=== PATIENT | female | born 1965 | race Caucasian/White ===

== ENCOUNTER 2018-08-14 16:40 | Inpatient (IN) | payer OTHER ==
[2018-08-14] MEDS ORDERED: ONDANSETRON 4 MG/2 ML VIAL ONE (17:10)
[2018-08-14] MEDS ORDERED: HYDROmorphONE/DILAUDID 1 MG/ML INJ ONE ×2 (17:10→19:31)
[2018-08-14] MEDS ORDERED: HYDROmorphONE/DILAUDID 2 MG/ML INJ IVP ONE ×2 (17:11→18:29)
[2018-08-14] MEDS ORDERED: ONDANSETRON 4 MG/2 ML VIAL IVP PRN (17:11)
--- NOTE | 2018-08-14 17:13 | EDPHY ---
HPI/HX/ROS/PE/MDM Narrative: CLINICAL IMPRESSION: T10 spinous process fracture, nondisplaced T11 fracture, unstable anterior, posterior T12 fracture ASSESSMENT/PLAN: Patient is a 53-year-old female with no significant medical history who presents with a complaint of low back pain after falling 4 ft off a scaffolding. Patient is afebrile and not toxic appearing, she is in moderate distress on arrival. HSNE intact with no significant red flags. Thoracic and Lumbar spine CT revealed acute T10 spinous process fracture, acute nondisplaced T11 fracture as well as unstable anterior, posterior fracture of T12. Dr. Toussaint with Neurosurgery was consulted, recommended MRI for further evaluation. MRI revealed fractures as mentioned in CT, no findings to suggest epidural compression syndrome, epidural hematoma, spinal cord injury or cauda equina. The patient was given multiple doses of Dilaudid with mild improvement of her pain. Dr. Toussaint evaluated this patient in the emergency department, she will be admitted to his service for further evaluation and surgical management. On repeat exam in prior to transfer to the floor her pain was improved, she remained neurovascularly intact while in the emergency department. Case discussed with and patient seen by Dr. Shah DIFFERENTIAL DX: Epidural compression syndrome, epidural hematoma, fracture, subluxation, cauda equina ED COURSE: 5:10 p.m.: Discussed with Dr. Shah 6:10 p.m.: Discussed case with Dr. Moreno time, multiple fractures of her T and L-spine including unstable T12 fracture. Will proceed with thoracic CT. Discussed with Dr. Shah. 7:30 p.m.: Discussed case with Dr. Toussaint, recommends further imaging to include MRI without contrast. Patient with findings suggestive of DISH. CHIEF COMPLAINT: Lumbar back pain, fall HPI: Patient is a 53-year-old female with no significant medical history who presents to the emergency department after sustaining a 4 ft fall onto her back. 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 On the way down she believes she hit some concrete and ultimately landed on her back. She immediately experienced sharp pain in her mid lumbar spine. She did not hit her head, there is no loss of consciousness. She is not on aspirin or any anticoagulation. No history of chronic back pain or surgeries. Patient denies saddle paresthesias, lower extremity numbness, tingling, major motor weakness, urinary retention or bowel/bladder incontinence. She denies any headache, neck pain, back pain, chest pain, shortness of breath or abdominal pain. Patient denies any other injury. PMH: Denies Pertinent Past Surgical History: Denies Family History: Noncontributory Social History: Denies alcohol, denies illicit drug use and denies cigarette smoking REVIEW OF SYSTEMS: All other systems negative Constitutional: No fever, no chills, appetite change. Eyes: No discharge, vision change ENT: No sore throat, congestion, ear pain. Cardiovascular: No chest pain, no palpitations. Respiratory: No cough, no shortness of breath. Gastrointestinal: No abdominal pain, no vomiting, diarrhea. Genitourinary: No hematuria, dysuria, flank pain, pelvic pain Musculoskeletal: Back pain; denies joint swelling, joint pain, myalgias. Skin: No rashes, color change. Neurological: No headache, dizziness, weakness. PHYSICAL EXAM: General Appearance: Alert, oriented, appropriate, cooperative, moderate distress , well hydrated, non-toxic appearing, VSS, no hypoxia. HEENT: TMs are clear bilaterally no perforation or FB, no injection, no evidence of serous or mucopurulent otitis. Oropharynx clear is no erythema or exudates, no tonsillar hypertrophy or asymmetry. Dentition without abnormality. Eyes: PERRLA, no acute vision change, nystagmus, swelling, discharge, pain or photosensitivity. Conjunctiva pink, no pallor or injection Neck: Supple, nontender, no lymphadenopathy, no midline pain, no step-off or deformity, FROM, no meningismus. Respiratory: There are no retractions, lungs are clear to auscultation. Cardiac: Regular rate and rhythm, no murmurs or gallops. Gastrointestinal: Abdomen is soft, nontender, bowel sounds normal, no masses/ hernia, no rigidity, guarding or focal peritoneal findings. No step-off, palpable bony abnormality, edema, erythema or ecchymosis of thoracic or lumbar spines. TTP: Midline low thoracic and upper lumbar spine. No obvious bony deformity. Limited ROM of lumbar spine due to pain. 5/5 and equal strength of the UEs and LEs bilaterally including shoulder shrug. Pulses: 2+ and equal radial, DP and PT pulses bilaterally. Sensation intact and symmetric to light touch from face, UEs and LEs bilaterally. Back Pain Pathway Low/medium concern for Acute Spinal Emergency (ASE) High Sensitivity Neuro Exam (HSNE) Lumbar pain L1: inner thigh sensation-no deficit L2: ADduct thigh (cross legs)- no deficit L3: Extend knee- no deficit L4: Ankle dorsiflexion- no deficit L5: Great toe extension- no deficit S1: Flex knee- no deficit S3-4: bladder/bowel function- no dysfunction Neurological: Alert and oriented x 3, CN 2-12 grossly intact, normal gait no ataxia, DTR's intact, normal sensation and strength Skin: Warm, dry, no rashes, no nodules on palpation. Musculoskeletal: Extremities are symmetrical, full range of motion, no tenderness, deformity, swelling, or erythema. Psychiatric: Patient is oriented X 3, there is no agitation. MEDICAL DECISION MAKING: Patient was seen with Dr. Shah. Diagnosis: Acute thoracic spine fractures including T10 spinous process, nondisplaced T11 and unstable anterior posterior T12. New, requires workup Summary: See Assessment and Plan for summary of ED visit Clinical lab tests: ordered / reviewed. Independent visualization of images, tracing, or specimens: Yes. Decision to obtain medical records or history from someone other than the patient: No Review / Summarize previous medical records: No Discussed patient with another provider: Yes, Dr. Shah and Dr. Toussaint Patient Progress: Stable, admit. (Jessica Abad) ED Course: Independent physician evaluation: I evaluated and participated in the management of the patient. I also evaluated the patient independently. My co-signature indicates that I have reviewed this chart and I agree with the findings and plan of care as documented. My personal H&P findings include: Patient presented to the ED after a 4-5 foot fall while working today. She presents the emergency department with complaints of acute pain in her thoracolumbar region. She denies any acute numbness or weakness. She denies any chest pain, abdominal pain, difficulty breathing or additional traumatic complaints. Physical exam: General Appearance: Alert, no distress Head: Atraumatic Eyes: Pupils equal, round, reactive ENT, Mouth: No hemotympanum, no oral trauma Neck: Nontender, trachea midline Respiratory: No chest wall tender, no subcutaneous air, lungs clear bilaterally Cardiovascular: Regular rate and rhythm Abdomen: Abdomen is soft and nontender, pelvis stable Skin: No lacerations, No abrasion Back: Tenderness to palpation noted throughout the lower thoracolumbar spine Extremities: Nontender, full range of motion Neurological: A&Ox3, normal motor function, normal sensory exam ED course: Patient arrives neurologically intact. She was taken for CT scan of the T and L -spine which demonstrate fractures involving T10 and 11 which are unstable. Consultation was made with Neurosurgery at 7:20 p.m.. The case was discussed with Dr. Toussaint. Patient will be admitted to the neuro surgical service. MRI demonstrates no evidence of a significant epidural hematoma. (Ellis Shah) - Data Points Imaging Results: Imaging Impressions Lumbar Spine CT 08/14/18 17:11 Impression: 1. Acute minimal compression fracture of the superior endplate of T12 with a nondisplaced fracture of the left superior articular facet of T12, likely an unstable fracture. 2. Nondisplaced fracture through anterior-inferior aspect of the T11 vertebral body and the inferior articular facets of T11 and base of the T11 spinous process, likely unstable. 3. Incomplete visualization of what appears to be an acute fracture through the T10 spinous process and partially fused interspinous ligaments of T11 and T10. 4. The anterior elements superior to the midportion of T11 are superior to the imaged lumbar spine. CT thoracic spine is recommended. 5. Spinal canal narrowing secondary to calcification in the posterior longitudinal ligament at T11-T12 and T12-L1. 6. Additional findings as above. Findings discussed with Jessica Abad PA-C on 08/14/2018 at 18:06. Thoracic Spine CT 08/14/18 18:09 Impression: 1. Partial ankylosis of the thoracolumbar spine, with fractures of the anterior and posterior elements of T11 and T12, that are likely unstable. MRI would be useful to assess for epidural hematoma, with no definite hematoma visible on this unenhanced CT. 2. Nondisplaced fracture through the inferior T10 spinous process. 3. Additional findings, as above. Findings discussed with PRIETO Cruz, on August 14, 2018 at 1844. Thoracic Spine MRI 08/14/18 19:18 Impression: 1. Acute mild compression fracture of the superior plate of T12, with nonvisualization of an anteroinferior T11 vertebral body fracture and posterior element fractures from T10 through T12 visible on CT. 2. Severe spinal canal narrowing at T11-T12 that appears to be secondary to bulky calcification of the posterior longitudinal ligament, effacing CSF adjacent to the spinal cord, with equivocal cord compression. Findings discussed with PRIETO Cruz, on August 14, 2018 at 2051. Laboratory Results: Laboratory Results 08/14/18 17:20 08/14/18 17:20 08/14/18 08/14/18 17:20 17:20 WBC 13.39 10^3/uL H 10^3/uL (3.80-9.50) RBC 5.43 10^6/uL H 10^6/uL (4.18-5.33) Hgb 15.7 g/dL g/dL (12.6-16.3) Hct 47.7 % H % (38.0-47.0) MCV 87.8 fL fL (81.5-99.8) MCH 28.9 pg pg (27.9-34.1) MCHC 32.9 g/dL g/dL (32.4-36.7) RDW 13.4 % % (11.5-15.2) Plt Count 341 10^3/uL 10^3/uL (150-400) MPV 9.5 fL fL (8.7-11.7) Neut % (Auto) 61.7 % % (39.3-74.2) Lymph % (Auto) 30.0 % % (15.0-45.0) [place] % (Auto) 5.2 % % (4.5-13.0) Eos % (Auto) 1.1 % % (0.6-7.6) Baso % (Auto) 0.5 % % (0.3-1.7) Nucleat RBC Rel Count 0.0 % % (0.0-0.2) Absolute Neuts (auto) 8.25 10^3/uL H 10^3/uL (1.70-6.50) Absolute Lymphs (auto) 4.02 10^3/uL H 10^3/uL (1.00-3.00) Absolute Monos (auto) 0.70 10^3/uL 10^3/uL (0.30-0.80) Absolute Eos (auto) 0.15 10^3/uL 10^3/uL (0.03-0.40) Absolute Basos (auto) 0.07 10^3/uL 10^3/uL (0.02-0.10) Absolute Nucleated RBC 0.00 10^3/uL 10^3/uL (0-0.01) Immature Gran % 1.5 % H % (0.0-1.1) Immature Gran # 0.20 10^3/uL H 10^3/uL (0.00-0.10) Sodium 138 mEq/L mEq/L (135-145) Potassium 4.2 mEq/L mEq/L (3.5-5.2) Chloride 105 mEq/L mEq/L (97-110) Carbon Dioxide 23 mEq/l mEq/l (22-31) Anion Gap 10 mEq/L mEq/L (6-14) BUN 12 mg/dL mg/dL (7-23) Creatinine 0.7 mg/dL mg/dL (0.6-1.0) Estimated GFR > 60 Glucose 106 mg/dL H mg/dL (70-100) Calcium 9.6 mg/dL mg/dL (8.5-10.4) Total Bilirubin 0.7 mg/dL mg/dL (0.1-1.4) AST 43 IU/L IU/L (14-46) ALT 49 IU/L IU/L (9-52) Alkaline Phosphatase 92 IU/L IU/L (38-126) Total Protein 7.9 g/dL g/dL (6.3-8.2) Albumin 4.6 g/dL g/dL (3.5-5.0) Medications Given: Discontinued Medications Hydromorphone HCl (Dilaudid) 0.5 mg IVP EDNOW ONE Stop: 08/14/18 17:12 Last Admin: 08/14/18 17:18 Dose: 0.5 mg Hydromorphone HCl (Dilaudid) 0.5 mg IVP EDNOW ONE Stop: 08/14/18 18:30 Last Admin: 08/14/18 19:33 Dose: 0.5 mg Ondansetron HCl (Zofran) 4 mg IVP Q4 PRN PRN Reason: Nausea/Vomiting, Can't Take PO Stop: 02/10/19 17:10 Last Admin: 08/14/18 17:18 Dose: 4 mg Ondansetron HCl (Zofran) 4 mg IVP EDNOW ONE Stop: 08/14/18 19:36 Last Admin: 08/14/18 19:37 Dose: 4 mg General Initial Vital Signs: Initial Vital Signs Temperature (C) 36.5 C 08/14/18 16:50 Heart Rate 89 08/14/18 16:50 Respiratory Rate 18 08/14/18 16:50 Blood Pressure 158/90 H 08/14/18 16:50 O2 Sat (%) 94 08/14/18 16:50 O2 Delivery Mode Room Air O2 (L/minute) 96 Allergies/Adverse Reactions: No Known Allergies Allergy (Unverified 08/14/18 16:50) Home Medications: Medication Instructions Recorded Multivitamins [Multivitamin (*)] 1 each PO DAILY 08/14/18 Departure - Departure Condition: Fair
[2018-08-14 19:18] LABS: PLATELET COUNT 341 10^3/uL (150-400)
[2018-08-14] MEDS ORDERED: ONDANSETRON 4 MG/2 ML VIAL IVP ONE (19:35)
--- NOTE | 2018-08-14 22:25 | GHP ---
DATE OF ADMISSION: 08/14/2018 REASON FOR ADMISSION: Three column thoracolumbar fracture status post fall. 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 She was working at the [employer] department when she states she fell approximately 4 feet and hit her back on a table being used by the [employer] workers. At that point, she developed acute onset of back pain with no radiculopathy or extremity symptoms. She was in so much pain that she requested her coworkers bring her to [facility] for further evaluation and management. She was brought by private car and ambulated on her own to [facility] with severe thoracolumbar pain. No numbness, tingling, pain or weakness of the lower extremities and no loss of bowel or bladder function. No loss of consciousness. The patient underwent imaging studies which demonstrate a diffuse ankylosing process of the thoracolumbar system, likely suggestive of DISH with an acute T10 spinous process fracture, acute nondisplaced T11 fracture , and unstable anterior posterior fracture of T12. Neurosurgery was consulted. An MRI completed. In my discussion with the patient, she currently has focal back pain. Continues to deny any neurological deficits. No previous history of spinal fractures. She is adopted and her adoptive parents are here but there is no history of any spinal genetic disorders. FAMILY HISTORY: Negative and noncontributory as the patient is adopted. 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 Denies any alcohol or other illicit drug use. No tobacco use. She does have a significant other who is with her in the emergency department. PAST MEDICAL HISTORY: None. MEDICATIONS: None. ALLERGIES: No known drug allergies. REVIEW OF SYSTEMS: A complete 10-point review of systems from the patient's intake form reviewed by myself, significant only for those noted above in the HPI. PHYSICAL EXAMINATION: VITALS: Blood pressure 125/75, heart rate 102, respiratory rate 18, saturating at 96% on room air. Temperature is 37.1. GENERAL: The patient is lying in the bed. No acute distress. She is quite pleasant and cooperative with examination. Both of her parents and her significant other are at the bedside. HEENT: Head is atraumatic, normocephalic. Pupils are equal, round, and reactive to light bilaterally. Extraocular movements are intact. Oropharynx is moist. NEUROLOGIC: Cranial nerves 2-12 are intact. Tongue protrudes in the midline. Uvula and palate elevate symmetrically. She has intact sensation to light touch on her face bilaterally. She has intact sensation to her face bilaterally and hearing is intact to light finger scratch. Shoulder shrug is symmetric. MOTOR EXAM: She has 5/5 strength with bilateral financial retirement plan specialist strength, biceps, triceps, deltoids, bilateral hip flexion, knee flexion and extension, plantar and dorsiflexion, and extensor hallucis longus. SENSORY EXAM: She has intact sensation to light touch throughout all major dermatomes of the bilateral upper and lower extremities throughout. REFLEXES: 2+ reflexes in bilateral brachioradialis and patella. No Rosy's. No Babinski. SPINE: She has no edema, erythema or ecchymosis of the thoracolumbar spine. No palpable step-offs. She does have pain in the thoracolumbar junction. MEDICAL DECISION MAKING: Patient underwent a CT of the thoracic and lumbar spine as well as an MRI scan of the thoracic spine. There is evidence of a partially ankylosis of the thoracolumbar spine with fracture of the anterior and posterior elements of T11 and T12. There is a T10 spinous process fracture. Flowing osteophytes extending from T4 through T11 anteriorly and moderate spinal canal stenosis of T11 and T12 and T12-L1 secondary to calcified posterior longitudinal ligament. Compression deformity of the superior endplate of T12 without significant vertebral height loss. MRI of the thoracic spine demonstrates acute mild compression fracture of the superior endplate of T12 with none visualized of the interior or inferior T11 vertebral body fracture , posterior element fracture T10 through T12. Severe spinal canal narrowing at T11 and T12. LABS: White count is 13.39, hematocrit 47.7, sodium 138, potassium 4.2, BUN of 12, creatinine of 0.7. ASSESSMENT/PLAN: The patient is a 53-year-old otherwise very healthy woman with evidence of DISH versus ankylosing spondylitis who presents with acute onset of back pain status post a 4-5 foot level fall. She has evidence of a stable unstable thoracolumbar fracture with spinal stenosis but no neurological deficits. I reviewed with the patient and her family the treatment options including bracing versus surgical stabilization with internal bracing. At this point, she agrees with the treatment plan and we will admit her to the med surg floor under my care. We will plan to take her for surgery tomorrow for posterior stabilization T9 through L2. Risks and complications of surgery were discussed with the patient and her family. They understand. We will consent her in the morning. We will make her n.p.o. this evening. Put her on q.4 hour neuro checks for this evening. All of their questions were answered in the emergency department and she was seen by myself at 9:10 p.m. /[id number]/MODL MTDD
[2018-08-14] MEDS: HYDROCODONE/APAP 5/325 TAB PO PRN (22:58)
[2018-08-14] MEDS: NS 1,000 ML IV SCH (23:00)
[2018-08-15] MEDS: HYDROCODONE/APAP 5/325 TAB PO PRN ×3 (02:19→20:19)
[2018-08-15] MEDS: ONDANSETRON 4 MG/2 ML VIAL IVP PRN ×2 (07:44→13:49)
[2018-08-15] MEDS: METHOCARBAMOL 750 MG TAB PO PRN ×3 (07:48→20:18)
[2018-08-15] MEDS: NS 1,000 ML IV SCH ×2 (08:04→20:24)
[2018-08-15] MEDS ORDERED: ceFAZolin 2 GM/DEXTROSE 100 ML IV ONE (08:20)
--- NOTE | 2018-08-15 08:27 | PDHPUP ---
History & Physical Update H&P update statement: This history and physical update is based on an assessment of the patient which was completed after admission or registration (within 24 hours), but prior to the surgery/procedure. H&P update: H&P reviewed & patient examined, changes noted (Risks benefits and alternatives to T9-L2 PSF for fracture stabilization discussed. Questions answered. Patient marked and consents on the chart. )
--- NOTE | 2018-08-15 11:57 | ASMTCMCOM ---
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 Pt to OR today. PT to eval when appropriate. Destiney with [employer] is present for initial information, she is not necessarily the assigned RN CM and she reports it is unknown now if pt will have WC RN CM assigned. For now Carie can be reached at [phone] F:[phone]. Face sheet and H&P faxed to Carie, also provided the contact number. CM to follow for d/c planning. Date Signed: 08/15/2018 11:57 AM Electronically Signed By:WILLIAN Duckworth
[2018-08-15] MEDS: oxyCODONE IR 5 MG TAB PO PRN ×2 (12:26→13:52)
[2018-08-15] MEDS ORDERED: morphINE SR 15 MG TAB PO ONE (13:00)
[2018-08-15] MEDS ORDERED: ACETAMINOPHEN 500 MG TAB PO ONE (14:00)
[2018-08-15] MEDS ORDERED: GABAPENTIN 300 MG CAP PO ONE (14:00)
[2018-08-15] MEDS ORDERED: BUPIVACAINE/EPI 0.25% 30 ML SDV ONE (14:28)
[2018-08-15] MEDS ORDERED: THROMBIN (BOVINE) 20,000 UNIT VIAL TP ONE (14:29)
[2018-08-15] MEDS ORDERED: SURGIFLO MATRIX KIT WITH THROMBIN 8 ML TP ONE (14:29)
[2018-08-15] MEDS ORDERED: CHLORHEXIDINE GLUC HIBICLENS 118 ML BTL TP ONE (14:29)
[2018-08-15] MEDS ORDERED: BACITRACIN 50,000 UNITS/10 ML SYR IRR ONE (14:30)
[2018-08-15] MEDS ORDERED: LR 1,000 ML IV ONE (14:46)
[2018-08-15] MEDS ORDERED: MIDAZOLAM 2 MG/2 ML VIAL IVP ONE (15:04)
--- NOTE | 2018-08-15 15:04 | PDANEPAE ---
ANE History of Present Illness traumatic spinal injury here for T9 to L2 fusion ANE Past Medical History - Cardiovascular History Hx Hypertension: No Hx Arrhythmias: No Hx Chest Pain: No Hx Coronary Artery / Peripheral Vascular Disease: No - Pulmonary History Hx Oxygen in Use at Home: No Hx Sleep Apnea: No Sleep Apnea Screening Result - Last Documented: Negative - Endocrine History Hx Diabetes: No - Chronic Pain History Chronic Pain: No ANE Review of Systems Review of Systems: - Exercise capacity Exercise capacity: >=4 METS ANE Patient History - Allergies Allergies/Adverse Reactions: No Known Allergies Allergy (Unverified 08/14/18 16:50) - Home Medications Home Medications: Multivitamins [Multivitamin (*)] 1 each PO DAILY 08/14/18 [Last Taken 08/13/18] - NPO status NPO Status: no food or drink >8 hours NPO Since - Liquids (Date): 08/15/18 NPO Since - Liquids (Time): 00:00 NPO Since - Solids (Date): 08/15/18 NPO Since - Solids (Time): 00:00 - Anes Hx Anes Hx: no prior problems - Smoking Hx Smoking Status: Never smoked - Alcohol Use Alcohol Use: Occasionally - Family Anes Hx Family Anes Hx: none ANE Labs/Vital Signs - Labs Result Diagrams: 08/14/18 17:20 08/14/18 17:20 - Vital Signs Blood Pressure: 135/68 Heart Rate: 69 Respiratory Rate: 12 O2 Sat (%): 95 Height: 160.02 cm Weight: 84.878 kg ANE Physical Exam - Airway Neck exam: FROM Mallampati Score: Class 2 Mouth exam: normal dental/mouth exam Mouth image: 1 - missing - Pulmonary Pulmonary: no respiratory distress, clear to auscultation - Cardiovascular Cardiovascular: regular rate and rhythym, no murmur, rub, or gallop - ASA Status ASA Status: I ANE Anesthesia Plan Anesthesia Plan: general endotracheal anesthesia Lines/Monitors: arterial line Total IV Anesthesia: Yes
[2018-08-15] MEDS ORDERED: CEFAZOLIN 2 GM/DEXTROSE/100 ML BAG IV ONE (15:11)
[2018-08-15] MEDS ORDERED: fentaNYL 100 MCG/2 ML INJ ONE ×3 (15:18→17:58)
[2018-08-15] MEDS ORDERED: REMIFENTANIL HCL 1 MG VIAL ONE (15:18)
[2018-08-15] MEDS ORDERED: PROPOFOL/EMULSION 500 MG/50 ML BOTTLE IV ONE (15:18)
[2018-08-15] MEDS ORDERED: PROPOFOL 200 MG/20 ML VIAL ONE (15:18)
[2018-08-15] MEDS ORDERED: MAGNESIUM HYDROXIDE 30 ML UDCUP PO PRN (15:38)
[2018-08-15] MEDS ORDERED: BISACODYL 10 MG SUPP PR PRN (15:38)
[2018-08-15] MEDS ORDERED: diphenhydrAMINE 25 MG CAP PO PRN (15:38)
[2018-08-15] MEDS ORDERED: LACTULOSE 20 GM/30 ML UDCUP PO PRN (15:38)
--- NOTE | 2018-08-15 17:06 | PDMN ---
Medical Necessity Medical necessity: Pt meets inpt criteria per MD order and [facility] [id number], Spine, Scoliosis, Posterior Instrumentation, 4 days. 53 y/o s/p 4-5 ft fall w/acute onset of severe back pain, admitted w/evidence of DISH w/acute T10 spinous process fx , acute nondisplaced T11 fx, and unstable ant post fx of T12 requiring inpt surg: T9-L2 posterior thoracic fusion. Anticipate>2MN for above for ongoing eval/treatment of above.
[2018-08-15] MEDS ORDERED: HYDROCODONE/APAP 5/325 TAB PO PRN (17:11)
[2018-08-15] MEDS ORDERED: DIAZEPAM 5 MG/ML 1 ML SYR IVP PRN (17:11)
[2018-08-15] MEDS ORDERED: NALOXONE HCL 0.4 MG/ML INJ IVP PRN (17:11)
[2018-08-15] MEDS ORDERED: fentaNYL 100 MCG/2 ML INJ IVP PRN (17:11)
[2018-08-15] MEDS ORDERED: PROMETHAZINE HCL 25 MG/ML INJ IVP PRN (17:11)
[2018-08-15] MEDS ORDERED: oxyCODONE IR 5 MG TAB PO PRN (17:11)
[2018-08-15] MEDS ORDERED: ACETAMINOPHEN 500 MG TAB PO PRN (17:11)
[2018-08-15] MEDS ORDERED: ONDANSETRON 4 MG/2 ML VIAL IVP PRN (17:11)
[2018-08-15] MEDS ORDERED: HYDROmorphONE/DILAUDID 2 MG/ML INJ IVP PRN (17:11)
[2018-08-15] MEDS ORDERED: MEPERIDINE 25 MG/0.5 ML AMP IVP PRN (17:11)
--- NOTE | 2018-08-15 17:41 | POSTOPPROG ---
Post Op Note Date of Operation: 08/15/18 Surgeon: Nikolay Toussaint Instructional Design Specialist: Janee Pollack DERMATOLOGY SALES REPRESENTATIVE Anesthesiologist: Ute Anesthesia: GET(General Endotracheal) Pre-op Diagnosis: Thoracic fracture Procedure: T1-L1 fusion Inf/Abcess present in the surg proc area at time of surgery?: No Depth: Deep Incisional (Fascial) EBL: 100-500 Total fluids administered: see anesthesia Complications: none Drains: Zac Larry Date of Surgery: 08/15/18 Post Op Day: 0 Assessment/Plan: Assessment: 53 yr old F s/p T10-L1 fusion Plan: -Pain manangement -Clinic Physician Director to fit with Teresa brace, ok to get oob prior to arrival of brace -PT/OT -Encourage oob to chair tonight -Ok for DVT ppx POD#1 -EARLINE to bulb suction -Post op xrays ordered for am -Discussed patient with Dr Toussaint -Please call neurosurgery with questions/concerns Subjective: waking up in pacu Objective: waking up in pacu Following commands MAEx4 5/5 BLE Dressing CDI EARLINE patent Appropriate Neuro Check Frequency Ordered: Yes
--- NOTE | 2018-08-15 17:52 | POSTANESTH ---
Post Anesthetic Evaluation Cardiovascular Status: Normal, Stable, Similar to Pre-Op Cond Respiratory Status: Normal, Stable, Similar to Pre-op Cond. Level of Consciousness/Mental Status: Can Participate in Eval, Mildly Sleepy, Arousable Pain Control: Adequate, Prn Tx Ordered Nausea/Vomiting Control: Adequate, Prn Tx Ordered Complications Possibly Related to Anesthesia: None Noted
[2018-08-15] MEDS ORDERED: DIAZEPAM 5 MG/ML 1 ML SYR ONE (18:15)
[2018-08-15] MEDS: ceFAZolin 2 GM/DEXTROSE 100 ML IV SCH (22:29)
[2018-08-15] MEDS: SENNOSIDES/DOCUSATE SODIUM TAB PO SCH (22:35)
[2018-08-15] MEDS: FAMOTIDINE 20 MG TAB PO SCH (22:35)
[2018-08-15] MEDS: GABAPENTIN 300 MG CAP PO SCH (22:35)
[2018-08-16] MEDS: HYDROCODONE/APAP 5/325 TAB PO PRN ×2 (02:20→08:07)
[2018-08-16] MEDS: NS 1,000 ML IV SCH (03:36)
[2018-08-16 05:23] LABS: PLATELET COUNT 228 10^3/uL (150-400)
[2018-08-16] MEDS: GABAPENTIN 300 MG CAP PO SCH ×3 (05:51→21:37)
[2018-08-16] MEDS: ceFAZolin 2 GM/DEXTROSE 100 ML IV SCH (05:52)
--- NOTE | 2018-08-16 07:33 | NEUSURGPN ---
Date of Surgery: 08/15/18 Post Op Day: 1 Assessment/Plan: Assessment: 53 yr old F s/p T10-L1 fusion POD #1 Plan: -continue with pain management-doing better this am -Public Finance Specialist to fit with [place] brace -PT/OT-CPM -Encourage OOB to chair -Ok for DVT ppx POD #1 -EARLINE to bulb suction -Post op xrays ordered for this am -Discussed patient with Dr Toussaint -Please call neurosurgery with questions/concerns -pt understands and agrees Subjective: Awake and alert. NAD. Eating/drinking and voiding. No f/c/n/v/d. Pt with some lower back pain. Pt states that legs feel fine Objective: AAO x 3, PERRLA/EOMI no droop CN 2-12 grossly intact Following commands MAEx4 5/5 BLE Dressing CDI EARLINE patent Neuro Check Frequency: per routine Urinary Catheter in Place: No Catheter Insertion Date: 08/14/18 - Physician Discussed Patient with Dr.: Toussaint Neurosurgery Physical Exam - Vitals, I&O, Labs I and O 08/15/18 08/16/18 08/17/18 05:59 05:59 05:59 Intake Total 2317 Output Total 450 1890 Balance -450 427 Weight 84.878 kg 84.878 kg Intake: Oral (ml) 20 IV Intake (ml) 2297 Output: Urine (ml) 450 1800 Catheter 450 1800 Estimated Blood Loss (ml) 30 EARLINE Drain Output (ml) 60 Posterior Back Zac 60 Larry Other: Intake Quantity Yes: npo status and on iv fluids, for surgery today Sufficient Number of Voids Catheter 1 Number of Stools Catheter 0 Vital Signs Temp Pulse Resp BP Pulse Ox 36.8 C 76 17 116/75 94 08/16/18 04:00 08/16/18 04:00 08/15/18 22:38 08/16/18 04:00 08/16/18 04:00 Laboratory Results 08/16/18 04:48 08/16/18 04:48 ICD10 Worksheet Patient Problems: Problems Problem Status Onset Lumbar stenosis Acute Thoracic spine fracture Acute Lumbar radicular pain Acute - ICD10 Problem Qualifiers (1) Lumbar stenosis (2) Thoracic spine fracture (3) Lumbar radicular pain
[2018-08-16] MEDS: METHOCARBAMOL 750 MG TAB PO PRN ×4 (07:59→21:38)
[2018-08-16] MEDS: FAMOTIDINE 20 MG TAB PO SCH ×2 (07:59→21:37)
[2018-08-16] MEDS: SENNOSIDES/DOCUSATE SODIUM TAB PO SCH ×2 (07:59→21:37)
[2018-08-16] MEDS: POLYETHYLENE GLYCOL 3350 17 GM PKT PO PRN (07:59)
[2018-08-16] MEDS: ENOXAPARIN 40 MG/0.4 ML SYR SC SCH (07:59)
--- NOTE | 2018-08-16 08:31 | GOP ---
DATE OF OPERATION: 08/15/2018 SURGEON: Nikolay Toussaint MD PAN PULLER: Jnaee Pollack NP. ANESTHESIA: General. PREOPERATIVE DIAGNOSIS: 1. 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 2. Intractable back pain. POSTOPERATIVE DIAGNOSIS: 1. 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 2. Intractable back pain. PROCEDURE PERFORMED: 1. Posterior arthrodesis with approach to T10, T11, T12, L1. 2. Posterolateral fusion with bilateral pedicle screw placement at T10, T11, T12, L1 from the [employer] 5.5 system. 3. Posterolateral fusion bilaterally with morcellized allograft between T10 and L1. 4. Use of intraoperative 3D Stealth navigation. 5. Use of intraoperative fluoroscopy, less than 1 hour physician time. 6. Use of neuromonitoring. FINDINGS: per imaging ESTIMATED BLOOD LOSS: 30 mL COMPLICATIONS: None. INDICATIONS: The patient is a very pleasant 53-year-old woman who unfortunately fell while at work on the [place]. She had intractable back pain and imaging demonstrated that she had a fracture through T11-T12, as well as some small fractures at the T10 level. It was felt that she was unstable given it was a 3 column fracture and she had evidence of ankylosis of her spine. The patient had intractable back pain and, therefore, it was decided to proceed forth with internal stabilization as described above. DESCRIPTION OF PROCEDURE: The patient was brought to the operating theater and underwent general endotracheal anesthesia without complications. She had Venodynes, MANGO hose, and appropriate lines placed by Anesthesia. She was then flipped prone onto the Zac table using spinal precautions. All bony processes were inspected and padded. The thoracolumbar junction was then prepped and draped in the usual sterile surgical fashion. A time-out was completed per protocol and the patient received antibiotics within 1 hour of incision. Using lateral fluoroscopy and spinal needles, we live-counted our way up to the T9 through L2 levels. This was counted 2 times. We then marked this in the midline. This area was prepped and draped in the usual sterile surgical fashion. The incision was infiltrated with Marcaine with epinephrine. The incision was then taken down with the scalpel blade and using monopolar, taken down to the midline through the lumbodorsal fascia and a subperiosteal dissection carried out to the medial facet joints and the transverse processes of T10, T11, T12, L1. Deep retractors were placed to maintain our exposure and we again confirmed the level using lateral fluoroscopy. We attached the 3D Stealth navigation clamp to the spinous process of L1 and completed a 3D Stealth navigation spin. Using 3D Stealth navigation, we then placed the pilot highway patrol holes for the bilateral pedicle screws in T10, T11, T12 and L1. All holes were manually palpated with no evidence of any cortical breaches. We tapped and placed 5.5 x 40 mm screws bilaterally in T10, T11, T12 and 5.5 x 50 mm screws bilaterally in L1, all from the [email or web address] 5.5 system. Another 3D Stealth navigation spin demonstrated good placement of the hardware. At this point, we placed 2 rods into the heads of the screws between T10 and L1 and secured them down with cap screws, which were then tightened to the sales representative door to door's setting. We decorticated the bone bilaterally between T10 and L1. We then placed morcellized allograft between the T10 and L1 levels bilaterally for the posterolateral fusion. A drain was left in the subfascial space. The wound then closed in multiple layers including Vicryl sutures to deep layers and Dermabond for the skin. The patient's wounds were dressed sterilely. She was then flipped supine onto the transfer cart and taken to recovery room in stable condition. There were no complications and no changes in neuromonitoring throughout the procedure. /[id number]/MODL MTDD
[2018-08-16] MEDS: oxyCODONE IR 5 MG TAB PO PRN ×3 (10:04→21:39)
[2018-08-16] MEDS: ONDANSETRON 4 MG/2 ML VIAL IVP PRN (10:06)
[2018-08-16] MEDS: ONDANSETRON DISINTEGRATING 4 MG TAB PO PRN (16:35)
[2018-08-16] MEDS: ACETAMINOPHEN 325 MG TAB PO PRN (16:36)
[2018-08-17] MEDS: ONDANSETRON 4 MG/2 ML VIAL IVP PRN (02:40)
[2018-08-17] MEDS: oxyCODONE IR 5 MG TAB PO PRN ×5 (02:43→19:12)
[2018-08-17] MEDS: METHOCARBAMOL 750 MG TAB PO PRN ×3 (04:33→21:02)
[2018-08-17] MEDS: GABAPENTIN 300 MG CAP PO SCH ×3 (05:31→21:02)
[2018-08-17] MEDS: POLYETHYLENE GLYCOL 3350 17 GM PKT PO PRN (05:31)
--- NOTE | 2018-08-17 07:42 | NEUSURGPN ---
Date of Surgery: 08/15/18 Post Op Day: 2 Assessment/Plan: Assessment: 53 yr old F s/p T10-L1 fusion POD #2 Plan: -continue with pain management-doing better this am -Vessel Slagman fit with [place] brace-tolerating well -PT/OT-CPM -Encourage OOB to chair -Ok for DVT ppx POD #1 -EARLINE to bulb suction-100 out -Post op xrays ordered for this am -Discussed patient with Dr Toussaint -Please call neurosurgery with questions/concerns -pt understands and agrees Subjective: Awake and alert. NAD. Eating/drinking and voiding. No f/c/n/v/d. No terrell/neck/ chest/abd or gu complaints. Objective: AAO x 3, PERRLA/EOMI no droop CN 2-12 grossly intact Following commands MAEx4 5/5 BLE Dressing CDI EARLINE patent Neuro Check Frequency: per routine Urinary Catheter in Place: No Catheter Insertion Date: 08/14/18 - Physician Discussed Patient with : Breana Neurosurgery Physical Exam - Vitals, I&O, Labs I and O 08/16/18 08/17/18 08/18/18 05:59 05:59 05:59 Intake Total 2317 600 Output Total 1890 1050 Balance 427 -450 Weight 84.878 kg Intake: Oral (ml) 20 600 IV Intake (ml) 2297 Output: Urine (ml) 1800 950 Bedside Commode 950 Catheter 1800 Estimated Blood Loss (ml) 30 EARLINE Drain Output (ml) 60 100 Posterior Back Zac 60 100 Larry Other: Intake Quantity Yes: npo status and on iv fluids, for surgery today Yes Sufficient Number of Voids Bedside Commode 2 Catheter 1 Toilet 1 Number of Stools Bedside Commode 0 Catheter 0 Vital Signs Temp Pulse Resp BP Pulse Ox 37.1 C 98 16 129/76 H 92 08/17/18 03:19 08/17/18 03:19 08/17/18 03:19 08/17/18 03:19 08/17/18 03:19 Laboratory Results 08/16/18 04:48 08/16/18 04:48 ICD10 Worksheet Patient Problems: Problems Problem Status Onset Lumbar stenosis Acute Thoracic spine fracture Acute Lumbar radicular pain Acute - ICD10 Problem Qualifiers (1) Lumbar stenosis (2) Thoracic spine fracture (3) Lumbar radicular pain
--- NOTE | 2018-08-17 10:16 | ASMTCMCOM ---
CM Note CM Note Notes: Jeannette Arias with [employer] work [employer] calls to report she is the WC CM [phone] F:[phone] Date Signed: 08/17/2018 10:15 AM Electronically Signed By:WILLIAN Duckworth
[2018-08-17] MEDS: SENNOSIDES/DOCUSATE SODIUM TAB PO SCH ×2 (11:13→21:03)
[2018-08-17] MEDS: FAMOTIDINE 20 MG TAB PO SCH ×2 (11:13→21:02)
[2018-08-17] MEDS: ENOXAPARIN 40 MG/0.4 ML SYR SC SCH (11:14)
--- NOTE | 2018-08-17 12:12 | PDIAF ---
- Diagnosis Diagnosis: s/p T-L fusion Code Status: Full Code - Medication Management Route Salesman And Driver Antibiotics: none Discharge Medications: electronically signed and located in the Home Medication List. PICC Care - Routine: N/A - Orders Services needed: Home Care, Registered Nurse, Physical Therapy, Occupational Therapy Home Care Face to Face: I certify that this patient was under my care and that I had the required guja-it-nodi encounter meeting the encounter requirements on the discharge day. My findings support the fact that the patient is homebound as defined in Home Care Face to Face Continued: CMS Chapter 7 Medicare Benefits Manual 30.1.1 , The condition of the patient is such that there exists a normal inability to leave home and consequently, leaving home would require a considerable and taxing effort. Oxygen: to keep O2 sat above 90% Diet Recommendation: no restrictions on diet Diet Texture: Regular Texture Diet Parish: Not applicable Randal Stockings Discontinue Date: wear until walking well 100-200 yrds 2-3 times per day Additional Instructions: Take medications as directed See Dr Simons team in 2-3 weeks Call with any questions or concerns No bending or twisting Wear brace as directed - Follow Up Care Current Providers and Referrals: NONE *PRIMARY CARE P,. [Unknown] - As per Instructions Nikolay Toussaint MD [Medical Doctor] - (follow up in 2-3 weeks)
[2018-08-17] MEDS: ONDANSETRON DISINTEGRATING 4 MG TAB PO PRN (14:36)
--- NOTE | 2018-08-17 14:40 | PDHOMEO2F ---
Home Oxygen Face to Face Home Orders: I certify that a physician or a nurse practitioner or physician's sourcing assistant has had a ulob-so-kqpm encounter with this patient on the date of this order due to the diagnosis listed, which relates to the primary reason the patient requires home oxygen. Alternative treatments have been tried, or considered, and deemed ineffective. It is anticipated that supplemental oxygen will result in improvement with treatment. Home oxygen qualifying diagnosis: Hypoxia, shortness of breath SpO2 on room air (%): 87 Frequency of home oxygen needed: continuous Home oxygen liters per minute: 2 Home oxygen delivery device: nasal cannula Concentrator: No E-tanks for mobility and back up: Yes If ordering portable O2, is the patient mobile in the home?: Yes I certify that, based on these findings, the home oxygen is medically necessary for this patient for the following length of time. Length of time home oxygen needed: 1 week (Or until follow up with PCP) <Brinda Sykes - Last Filed: 08/17/18 14:40> Home Orders: I certify that a physician or a nurse practitioner or physician's sourcing assistant has had a wmbe-fj-fzhs encounter with this patient on the date of this order due to the diagnosis listed, which relates to the primary reason the patient requires home oxygen. Alternative treatments have been tried, or considered, and deemed ineffective. It is anticipated that supplemental oxygen will result in improvement with treatment. Home oxygen qualifying diagnosis: Hypoxia, shortness of breath, recent injury to thorax SpO2 on room air (%): 78 I certify that, based on these findings, the home oxygen is medically necessary for this patient for the following length of time. <Haley Marie - Last Filed: 08/18/18 10:19>
--- NOTE | 2018-08-17 15:19 | ASMTLACE ---
LACE Length of stay for Answers: 4-6 days current admission Acuity / Level of Answers: Yes Care: Did the patient have an inpatient admission? # of Emergency department Answers: 1-2 visits in the last 6 months Score: 8 Date Signed: 08/17/2018 03:19 PM Electronically Signed By:WILLIAN Duckworth
--- NOTE | 2018-08-17 16:11 | ASMTCMCOM ---
CM Note CM Note Notes: Pt medically stable for d/c with [facility] PT/OT/RN. Orders to be obtained via PassKit. Pt address/phone verified. Destiney with [facility] updated and reports [facility] is approved by ladle patcher Adryan Webb. Destiney states pt can buy equipment/meds and save receipts for reimbursement, pt partner Brandee was informed by this CM and Destiney. Pt meds filled at [facility] and they billed [place]. Destiney was faxed d/c clinicals. Pt to d/c with home O2. Date Signed: 08/17/2018 04:10 PM Electronically Signed By:WILLIAN Duckworth
--- NOTE | 2018-08-17 16:30 | PDCONSULT ---
Objects Conservator Note: Cecily Ugarte is a 53-year-old female with no known past medical history admitted after suffering a fall from a ladder approximately 4 ft onto a lexx table. She is currently postop day 2 status post T10-L1 fusion. The patient was set for discharge today but was noted to be hypoxic to the 70s on room air with ambulation. Medicine has been consulted for evaluation of her hypoxia. Patient states that she is comfortable as long as she is not moving. She states that she is very apprehensive to take deep breaths due to the surgical scar on her back which is very painful if she takes deep breaths. She also states that she feels somewhat limited in her ability to expand her chest due to the brace. She denies any cough, fevers, chills, chest pain, nausea, vomiting, new lower extremity edema or other symptoms. Past medical history None Past surgical history She is postop day 2 status post T10-L1 fusion Social history nonsmoker nondrinker, does not use drugs Family history noncontributory Allergies no known drug allergies Vital signs Blood pressure 135/79, pulse 83, respirations 16, she is 100% on 2 L nasal cannula but desats to 78% on room air, temperature 36.9 degrees C Physical exam General 53-year-old female in no acute distress HEENT- pupils are equal round reactive to light and accommodation her head is atraumatic normocephalic mucous membranes are moist pink and acyanotic Lungs are clear to auscultation bilaterally Cardiovascular-regular rhythm and rate no murmurs rubs gallops no peripheral edema Abdomen-nontender nondistended in all 4 quadrants positive bowel sounds no guarding or rebound no organomegaly Extremities no clubbing cyanosis edema or Calf pain Skin no rashes or ecchymosis Assessment 53-year-old female admitted after a fall now status post T10-L1 fusion and hypoxia on room air. Patient has substantial splinting while breathing due to pain and limited chest expansion due to pain and her brace. I suspect all of her hypoxia is due to splinting as well as atelectasis. She has no evidence of infection or fluid overload to suggest acute congestive heart failure. Plan -CXR -Incentive spirometry -Pain control -home oxygen -Close follow up to ensure resolution of hypoxia.
[2018-08-18] MEDS: oxyCODONE IR 5 MG TAB PO PRN ×4 (00:57→12:56)
[2018-08-18] MEDS: METHOCARBAMOL 750 MG TAB PO PRN (04:08)
[2018-08-18] MEDS: GABAPENTIN 300 MG CAP PO SCH (04:56)
[2018-08-18 08:22] VITALS: BP 99/68
[2018-08-18] MEDS: ENOXAPARIN 40 MG/0.4 ML SYR SC SCH (08:34)
[2018-08-18] MEDS: FAMOTIDINE 20 MG TAB PO SCH (08:34)
[2018-08-18] MEDS: SENNOSIDES/DOCUSATE SODIUM TAB PO SCH (08:34)
--- NOTE | 2018-08-18 09:25 | NEUSURGPN ---
Assessment/Plan: Assessment: 53 yr old F s/p T10-L1 fusion POD #3 Plan: -continue with pain management-doing better this am -O2 saturation has improved. -Test Hole Driller fit with [place] brace-tolerating well -PT/OT-CPM -Encourage OOB to chair -Post op xrays demonstrate intact hardware -Discussed patient with Dr Toussaint -Please call neurosurgery with questions/concerns Subjective: Pain tolerable. No shortness of breath. Objective: AAO x Following commands MAEx4 / BLE Dressing CDI Catheter Insertion Date: 08/14/18 - Physician Discussed Patient with Dr.: Toussaint Neurosurgery Physical Exam - Vitals, I&O, Labs I and O 08/17/18 08/18/18 08/19/18 05:59 05:59 05:59 Intake Total 600 500 Output Total 1050 80 Balance -450 420 Intake: Oral (ml) 600 500 Output: Urine (ml) 950 Bedside Commode 950 EARLINE Drain Output (ml) 100 80 Posterior Back Zac 100 80 Larry Other: Intake Quantity Yes Sufficient Number of Voids Bedside Commode 2 Toilet 1 4 Number of Stools Bedside Commode 0 Vital Signs Temp Pulse Resp BP Pulse Ox 36.8 C 79 16 99/68 L 96 08/18/18 08:00 08/18/18 08:00 08/18/18 08:00 08/18/18 08:00 08/18/18 08:00 Laboratory Results 08/16/18 04:48 08/16/18 04:48 ICD10 Worksheet Patient Problems: Problems Problem Status Onset Lumbar stenosis Acute Thoracic spine fracture Acute Lumbar radicular pain Acute
--- NOTE | 2018-08-18 11:15 | PDHOMEO2F ---
Home Oxygen Face to Face Home Orders: I certify that a physician or a nurse practitioner or physician's administrative sales assistant has had a wuxf-qu-azoj encounter with this patient on the date of this order due to the diagnosis listed, which relates to the primary reason the patient requires home oxygen. Alternative treatments have been tried, or considered, and deemed ineffective. It is anticipated that supplemental oxygen will result in improvement with treatment. Home oxygen qualifying diagnosis: Hypoxia, recent thorax injury SpO2 on room air (%): 78% Frequency of home oxygen needed: continuous Home oxygen liters per minute: 2L Home oxygen delivery device: nasal cannula Concentrator: Yes E-tanks for mobility and back up: Yes If ordering portable O2, is the patient mobile in the home?: Yes I certify that, based on these findings, the home oxygen is medically necessary for this patient for the following length of time. Length of time home oxygen needed: 1 month
[2018-08-18] MEDS: ACETAMINOPHEN 325 MG TAB PO PRN (12:58)
--- NOTE | 2018-08-18 16:25 | ASDISCHSUM ---
Discharge Information Plan Status:Home with Home Health Medically Cleared to Leave: Discharge Date:08/18/2018 02:24 PM CM D/C Disposition: ADT D/C Disposition:Home Health Service Projected Discharge Date:08/17/2018 11:00 AM Transportation at D/C:Family Discharge Delay Reason: Follow-Up Date:08/17/2018 11:00 AM Discharge Slot: Final Diagnosis: Placement Information Referral Type:*Home Health Care Services Referral ID:[id number] Provider Name:[facility] Care Address 1:[address] [facility] [address] Address 2: City:[place] Selection Factors: State:[place] Patient Contact Information Contact Name:MELINDA Relationship:Life Partner Address:[address] City:[place] Alternate Phone: State/Zip Code:[place] [address] Email: Financial Information Financial Class:Worker's Compensation Primary Plan Desc:[facility] Primary Plan Number:[facility]#[id number] Secondary Plan Desc:[facility] Secondary Plan Number:[id number] Assessment Information [facility] CM Progress Note CM Note CM Note Notes: 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 Pt to OR today. PT to [facility] when appropriate. Destiney with [employer] is present for initial information, she is not necessarily the assigned RN CM and she reports it is unknown now if pt will have WC RN CM assigned. For now Carie can be reached at [phone] F:[phone]. Face sheet and H&P faxed to Carie, also provided the contact number. CM to follow for d/c planning. Date Signed: 08/15/2018 11:57 AM Electronically Signed By:WILLIAN Duckworth LACE LACE Length of stay for Answers: 4-6 days current admission Acuity / Level of Answers: Yes Care: Did the patient have an inpatient admission? # of Emergency department Answers: 1-2 visits in the last 6 months Score: 8 Date Signed: 08/17/2018 03:19 PM Electronically Signed By:WILLIAN Duckworth [facility] CM Progress Note CM Note CM Note Notes: Charlottejagdeep Trujillo work comp calls to report she is the [facility] [phone] F:[phone] Date Signed: 08/17/2018 10:15 AM Electronically Signed By:WILLIAN Duckworth [facility] CM Progress Note CM Note CM Note Notes: Pt medically stable for d/c with [facility] PT/OT/RN. Orders to be obtained via Bus[employer]. Pt address/phone verified. Destiney Trujillo updated and reports [facility] is approved by clerical adjuster Adryan Webb. Destiney states pt can buy equipment/meds and save receipts for reimbursement, pt partner Brandee was informed by this CM and Destiney. Pt meds filled at [facility] and they billed [place]. Destiney was faxed d/c clinicals. Pt to d/c with home O2. Date Signed: 08/17/2018 04:10 PM Electronically Signed By:WILLIAN Duckworth Intervention Information
== END 2018-08-18 14:24 | disposition home health service (06) | DRG 460 ==
LOC: F3N 22:40 → UNDODISIN 08-17 12:54
PROVIDERS: ADMIT Neurological Surgery; ATTEND Neurological Surgery
PROC: 0RGA0AJ Fusion of Thoracolumbar Vertebral Joint with Interbody Fusion Device, Posterior Approach, Anterior Column, Open Approach (ICD-10-PCS; principal; 2018-08-15 15:00)
PROC: 0RG70AJ Fusion of 2 to 7 Thoracic Vertebral Joints with Interbody Fusion Device, Posterior Approach, Anterior Column, Open Approach (ICD-10-PCS; principal; 2018-08-15 15:00)
DX: S22.088A Other fracture of T11-T12 vertebra, initial encounter for closed fracture (principal); S22.078A Other fracture of T9-T10 vertebra, initial encounter for closed fracture; W12.XXXA Fall on and from scaffolding, initial encounter; Y92.69 Other specified industrial and construction area as the place of occurrence of the external cause; Y99.0 Civilian activity done for income or pay; M48.14 Ankylosing hyperostosis [Forestier], thoracic region; R09.02 Hypoxemia; J98.11 Atelectasis
CPT/HCPCS: 96374; 97110-GP; 97116-GP; 97162-GP; 97167-GO; 97530-GP; 97535-GO; C1713; J0690; J1170; J1650; J2270; J2405; J2704; J3010; J3360